=== PATIENT | female | born 2000 | race Caucasian/White ===

== ENCOUNTER 2024-09-15 13:35 | Emergency (ER) | payer SELFPAY ==
[2024-09-15] MEDS: Ketorolac 30 MG/ML SDV IM ONE (14:18)
[2024-09-15 14:28] LABS: BILIRUBIN,URINE NEGATIVE (NEGATIVE); GLUCOSE,URINE 50 mg/dL (NORMAL); KETONES,URINE NEGATIVE (NEGATIVE); LEUKOCYTE ESTERASE,URINE NEGATIVE (NEGATIVE); NITRITE,URINE NEGATIVE (NEGATIVE); OCCULT BLOOD,URINE MODERATE (NEGATIVE); PROTEIN,URINE NEGATIVE (NEGATIVE); UROBILINOGEN,URINE NORMAL (NEGATIVE)
[2024-09-15 14:32] LABS: APPEARANCE,URINE CLEAR (CLEAR); BACTERIA,URINE FEW (NS); COLOR,URINE YELLOW (YELLOW); HYALINE CASTS,URINE FEW (NS); SQUAMOUS EPITHELIAL CELLS,UR FEW (NS,R,O); WBC,URINE 0-5 (0-5)
== END 2024-09-15 14:52 | disposition home or self-care (01) ==
LOC: FB.ED 13:35
DX: S33.5XXA Sprain of ligaments of lumbar spine, initial encounter (principal); I10 Essential (primary) hypertension; F17.210 Nicotine dependence, cigarettes, uncomplicated; X50.9XXA Other and unspecified overexertion or strenuous movements or postures, initial encounter
CPT/HCPCS: 81001; 96372; 99283; J1885

== ENCOUNTER 2024-11-24 15:19 | Emergency (ER) | payer OTHER ==
[2024-11-24] MEDS: Ketorolac 30 MG/ML SDV IM ONE (15:53)
== END 2024-11-24 17:14 | disposition home or self-care (01) ==
LOC: FB.ED 15:19
DX: S73.191A Other sprain of right hip, initial encounter (principal); S70.11XA Contusion of right thigh, initial encounter; I10 Essential (primary) hypertension; F17.290 Nicotine dependence, other tobacco product, uncomplicated; W00.0XXA Fall on same level due to ice and snow, initial encounter
CPT/HCPCS: 73502; 73552; 96372; 99283; J1885

== ENCOUNTER 2025-01-09 18:40 | Emergency (ER) | payer OTHER ==
[2025-01-09] MEDS ORDERED: Cyclobenzaprine 10 MG Tab PO ONE (18:41)
[2025-01-09] MEDS: Ketorolac 30 MG/ML SDV IM ONE (19:11)
== END 2025-01-09 19:12 | disposition home or self-care (01) ==
LOC: FB.ED 18:40
DX: S49.92XA Unspecified injury of left shoulder and upper arm, initial encounter (principal); I10 Essential (primary) hypertension; W18.39XA Other fall on same level, initial encounter; Y93.89 Activity, other specified
CPT/HCPCS: 96372; 99283; A9270-GY; J1885